=== PATIENT | female | born 1950 | race Caucasian/White ===

== ENCOUNTER 2017-06-16 09:21 | Inpatient (IN) | payer OTHER, MEDICARE ==
[~2017-06-16] VITALS: Ht 172.7 cm; Wt 71.8 kg
[2017-06-16 09:34] VITALS: Ht 172.7 cm; Wt 71.8 kg
[2017-06-16] MEDS ORDERED: WELSR PO (11:01)
[2017-06-16] MEDS ORDERED: TIROSINT25 MC1 PO (11:04)
[2017-06-16] MEDS ORDERED: ONDANSETRON4 M3 PO (11:05)
[2017-06-16 11:28] LABS: BASOPHIL % 0.3 % (0-2); PLATELET COUNT 270 x10^3mcL (130-400); RED CELL DISTRIBUTION WIDTH 12.3 % (11.5-14.5)
[2017-06-16 11:58] VITALS: BP 124/58
[2017-06-16 11:59] LABS: CALCIUM 8.2 mg/dL (8.5-10.1); CARBON DIOXIDE 25.6 mmol/L (21-32); CREATININE SERUM 1.1 mg/dL (0.6-1.0); POTASSIUM SERUM 4.4 mmol/L (3.5-5.1)
[2017-06-16 12:04] LABS: ALBUMIN 3.4 g/dL (3.4-5.0); BILIRUBIN TOTAL 0.3 mg/dL (0.20-1.00); TOTAL PROTEIN, SERUM 5.8 g/dL (6.4-8.2)
[2017-06-16 12:13] LABS: MAGNESIUM 2.2 mg/dL (1.8-2.4); PHOSPHOROUS 4.1 mg/dL (2.5-4.9)
[2017-06-16 12:14] LABS: CHOLESTEROL/HDL RATIO 2.6
[2017-06-16 12:21] LABS: FREE T4 1.61 ng/dL (0.76-1.46); FREE THYROXINE INDEX 3.5 ug/dL (1.4-4.5); T4(THYROXINE) 9.1 ug/dL (4.7-13.3)
[2017-06-16 12:30] LABS: T3 TOTAL 0.68 ng/mL
[2017-06-16 12:45] VITALS: BP 124/58
[2017-06-16 14:30] VITALS: BP 118/77
[2017-06-16] MEDS ORDERED: BUPROPION HCL150 M1 PO (15:07)
[2017-06-16] MEDS ORDERED: LEVOTHYROXIN0.125 M2 PO (15:08)
[2017-06-16] MEDS ORDERED: DIAZEPAM5 MG PO (15:10)
[2017-06-16] MEDS ORDERED: IBUPROFEN600 MG PO (15:11)
[2017-06-16] MEDS ORDERED: GOOD SENSE OMEP20 MG PO (15:12)
[2017-06-16] MEDS ORDERED: ALENDRONATE SOD70 M2 PO (15:21)
[2017-06-16] MEDS ORDERED: FENOFIBRATE160 M1 PO (15:22)
[2017-06-16 16:26] VITALS: BP 111/72
[2017-06-16 18:46] LABS: microscopic required? NO
[2017-06-16 18:52] LABS: urine erythrocyte NEGATIVE (NEGATIVE)
[2017-06-16 20:14] VITALS: BP 100/60
[2017-06-17 04:38] VITALS: BP 107/63
[2017-06-17 06:44] LABS: BASOPHIL % 0.4 % (0-2); CALCIUM 8.1 mg/dL (8.5-10.1); CREATININE SERUM 1.1 mg/dL (0.6-1.0); MAGNESIUM 2.1 mg/dL (1.8-2.4); PHOSPHOROUS 3.7 mg/dL (2.5-4.9); PLATELET COUNT 208 x10^3mcL (130-400); POTASSIUM SERUM 4.2 mmol/L (3.5-5.1); RED CELL DISTRIBUTION WIDTH 12.4 % (11.5-14.5)
[2017-06-17 09:50] VITALS: BP 135/46
[2017-06-17 13:39] VITALS: BP 107/67
[2017-06-17 17:04] VITALS: BP 95/58
[2017-06-17 18:04] VITALS: BP 101/56
[2017-06-17 21:22] VITALS: BP 108/58
[2017-06-18 05:56] VITALS: BP 102/59
[2017-06-18 06:07] LABS: BASOPHIL % 0.5 % (0-2); PLATELET COUNT 186 x10^3mcL (130-400)
[2017-06-18 06:25] LABS: CALCIUM 8.3 mg/dL (8.5-10.1); CARBON DIOXIDE 28.5 mmol/L (21-32); CHLORIDE SERUM 105 mmol/L (98-107); CREATININE SERUM 0.9 mg/dL (0.6-1.0); GFR1 > 60 mL/min; GLUCOSE SERUM 114 mg/dL (74-106); POTASSIUM SERUM 4.5 mmol/L (3.5-5.1); SODIUM SERUM 139 mmol/L (136-145)
[2017-06-18] MEDS ORDERED: ASPIR 8181 MG PO (09:38)
[2017-06-18] MEDS ORDERED: PEPCID20 MG PO (09:39)
[2017-06-18] MEDS ORDERED: NORCO1 TA2 GT (09:41)
[2017-06-18 10:13] VITALS: BP 105/57
[2017-06-18 11:37] VITALS: BP 105/57
== END 2017-06-18 13:00 | disposition home or self-care (01) | DRG 480 ==
LOC: ED 09:21 → DU 10:51
PROVIDERS: Emergency Medicine; Family Medicine; Neuromusculoskeletal Medicine, Sports Medicine
PROC: 0QS604Z Reposition Right Upper Femur with Internal Fixation Device, Open Approach (ICD-10-PCS; principal; 2017-06-17 07:30)
DX: S72.011A Unspecified intracapsular fracture of right femur, initial encounter for closed fracture (principal); N17.0 Acute kidney failure with tubular necrosis; M19.90 Unspecified osteoarthritis, unspecified site; K27.9 Peptic ulcer, site unspecified, unspecified as acute or chronic, without hemorrhage or perforation; E78.5 Hyperlipidemia, unspecified; F32.9 Major depressive disorder, single episode, unspecified; F41.9 Anxiety disorder, unspecified; Z68.24 Body mass index [BMI] 24.0-24.9, adult; Z85.3 Personal history of malignant neoplasm of breast; Z85.850 Personal history of malignant neoplasm of thyroid; Z92.21 Personal history of antineoplastic chemotherapy; Z92.3 Personal history of irradiation; Z96.642 Presence of left artificial hip joint; Z96.653 Presence of artificial knee joint, bilateral; Z98.41 Cataract extraction status, right eye; W01.0XXA Fall on same level from slipping, tripping and stumbling without subsequent striking against object, initial encounter; Y92.59 Other trade areas as the place of occurrence of the external cause
CPT/HCPCS: 83880; 84439; 94150; 97110-GP; 97116-GP; 97530-GP; C1713; J0690; J1644; J2175; J2250; J2270; J2704; J3010; J3490; J7030; J7120; Q0092; Q0162